=== PATIENT | female | born 1975 | race Caucasian/White ===

== ENCOUNTER → 2021-05-25 10:13 | Outpatient (BNVA) | payer BC, SELFPAY | PROVIDERS: PCP Internal Medicine; Visit Provider Internal Medicine Rheumatology | DX: M45.9 Ankylosing spondylitis of unspecified sites in spine (principal); L40.0 Psoriasis vulgaris; Z79.899 Other long term (current) drug therapy; Z79.52 Long term (current) use of systemic steroids; M77.11 Lateral epicondylitis, right elbow; E03.9 Hypothyroidism, unspecified; Z71.89 Other specified counseling | CPT/HCPCS: 99204 ==

== ENCOUNTER → 2021-10-17 10:30 | Outpatient (BNVA) | payer BC, SELFPAY | PROVIDERS: PCP Internal Medicine; Visit Provider Internal Medicine Rheumatology | DX: M45.9 Ankylosing spondylitis of unspecified sites in spine (principal); Z79.899 Other long term (current) drug therapy; M77.11 Lateral epicondylitis, right elbow; E03.9 Hypothyroidism, unspecified; E04.2 Nontoxic multinodular goiter; Z87.2 Personal history of diseases of the skin and subcutaneous tissue; Z71.89 Other specified counseling | CPT/HCPCS: 99214 ==